=== PATIENT | female | born 1985 | race Two or more races ===

== ENCOUNTER → 2024-09-20 | Outpatient (CLI) | payer MEDICAID, SELFPAY ==
--- NOTE | 2024-09-20 13:00 | XR_ITS ---
Examination: Transvaginal ultrasound of the pelvis, complete Technique: Transvaginal sonographic images pelvis performed using tiwari scale imaging Exam date and time: September 20, 2024 1341 hours INDICATIONS: Pelvic pain beginning one year ago, history ovarian cystic disease FINDINGS: Uterus 6.0 cm no uterine mass or intrauterine gestation Endometrial stripe 0.3 cm Right ovary 4.2 cm arterial flow follicular cysts, the largest 12 mm Left ovary 5.7 cm arterial flow multiple cysts, the largest with internal echoes 3.7 x 2.5 x 3.2 cm IMPRESSION: Left ovarian cyst with internal echoes 3.7 x 2.5 x 3.2 cm, consider hemorrhagic cyst Recommend 3-6 month follow-up pelvic sonography.
--- NOTE | 2024-09-20 13:00 | XR_ITS ---
Examination: Pelvic ultrasound, transabdominal, complete Technique: Transabdominal ultrasound of the pelvis performed using grayscale imaging Date and time of exam: September 20, 2024 1335 hours INDICATIONS: Pelvic pain beginning one year ago, history ovarian cystic disease FINDINGS: Uterus 6.8 cm no uterine mass or intrauterine gestation Endometrial stripe 0.3 cm Right ovary 3.4 cm arterial flow Left ovary 5.6 cm arterial flow, 3.7 x 3.4 x 4.2 cm cyst with internal echoes No fluid in the cul-de-sac IMPRESSION: Left ovarian complex cyst with internal echoes, 3.7 x 3.4 x 4.2 cm, consider hemorrhagic cyst Recommend 3 6 month follow-up pelvic sonography
== END | disposition home or self-care (01) ==
PROVIDERS: PCP Physician Assistant; Referring Provider Obstetrics & Gynecology; Visit Provider Obstetrics & Gynecology
DX: N83.292 Other ovarian cyst, left side (principal)
CPT/HCPCS: 76830; 76856

== ENCOUNTER → 2025-03-26 | Outpatient (CLI) | payer MEDICAID, SELFPAY ==
--- NOTE | 2025-03-26 16:11 | XR_ITS ---
Examination: Abdomen AP single view Technique: AP portable supine abdomen, single view Exam date and time: March 26, 2025, 1613 hours INDICATIONS: History stones, ureteral stent FINDINGS: Right ureteral stent satisfactory position. No renal or ureteral calculi. Moderate stool throughout the colon. IMPRESSION: Right ureteral stent satisfactory position.
== END | disposition home or self-care (01) ==
LOC: CDIM 16:06
PROVIDERS: PCP Physician Assistant
DX: N13.30 Unspecified hydronephrosis (principal)
CPT/HCPCS: 74018